=== PATIENT | male | born 1940 | race Caucasian/White ===

== ENCOUNTER → 2019-01-02 | Day surgery (SDC) | payer MEDICARE, OTHER ==
[~2019-01-02] MED LIST: FENOFIBRATE145 MG PO; FLOMAX0.4 MG PO; LEVOTHYROXINE PO; LIDOCAINE HCL 2% LOCAL INJ 5 ML SDV VIAL INJ ONE; PROPOFOL IV EMULSION 10 MG/ML 20 ML VIAL ONE; SULFASALAZINE500 MG PO
[2019-01-02 10:55] VITALS: BP 128/74
--- NOTE | 2019-01-02 13:17 | Operative Report ---
DATE OF PROCEDURE: 01/02/2019 SURGEON: Dav De Paz MD PROCEDURES PERFORMED: 1. Esophagogastroduodenoscopy. 2. Colonoscopy. PREOPERATIVE DIAGNOSES: 1. Anemia. 2. History of colon polyps. POSTOPERATIVE DIAGNOSES: 1. Hiatal hernia. 2. Reflux esophagitis. 3. Murcia's esophagus. 4. Gastric mass. 5. Gastritis. 6. Colonic polyps. 7. Diverticulosis. 8. Internal hemorrhoids. PREOPERATIVE MEDICATIONS: Consisted of MAC anesthesia. PROCEDURE #1: Esophagogastroduodenoscopy. PROCEDURE IN DETAIL: Using an [employer] video gastroscope, it was inserted into the patient's oropharynx, advanced to hypopharynx and down into the esophagus. The mucosa present in the esophagus was normal until we got down to the very bottom of the esophagus. Here, we had a reflux esophagitis and changes compatible with Murcia's esophagus. This was from 38 to 39 cm. Below that, there was a hiatal hernia from 39 to 40 cm. Biopsies were obtained to confirm Murcia esophagus and to look for dysplasia. The stomach was entered and insufflated with air. Along the lesser curvature of the fundus of the stomach, there was a gastric mass, no ulceration. Biopsies were obtained to rule out neoplasm. The rest of the stomach was identified and contained evidence of a gastritis, but no other masses and no bleeding lesions. Biopsies were obtained in the antrum of the stomach for the H. pylori infection. Multiple biopsies were obtained from the gastric mass up in the fundus. The motility was normal. The pylorus was visualized and entered. The duodenal bulb and postbulbar duodenum were found to be within normal limits. No angiodysplasia was seen either in the duodenum or as we entered back into the stomach. In the retroflexed position, the cardia and fundus were viewed and the mass was again seen. It was roughly about 2 cm x 2 cm and just slightly raised irregular folds. The endoscope was then withdrawn back up into the esophagus, hypopharynx, oropharynx and now in the patient's mouth and the procedure was ended. 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 PROCEDURE #2: Colonoscopy. PROCEDURE IN DETAIL: After normal digital rectal examination, Olympus RENE video colonoscope was inserted into the patient's rectum and advanced without difficulty to the level of the cecum. In the cecum, there was a 5 mm size benign polyp, which was removed with hot biopsy forceps. Multiple diverticula were seen in the descending and sigmoid colon. As we got down to the rectum, three small 2-3 mm size polyps were seen and removed with the hot biopsy forceps. Internal hemorrhoids were also encountered. The colonoscope was withdrawn from the patient's rectum and the procedure was ended. In conclusion, we have four benign polyps, which were removed with the hot biopsy forceps. Diverticulosis and internal hemorrhoids. No angiodysplasia in the colon was identified. MD CAITIE Dahl/MODL /[id number]
== END | disposition home or self-care (01) ==
LOC: OR 07:42
PROVIDERS: ATTEND Internal Medicine Gastroenterology
DX: D50.9 Iron deficiency anemia, unspecified (principal); K63.5 Polyp of colon; K62.1 Rectal polyp; K31.7 Polyp of stomach and duodenum; K29.70 Gastritis, unspecified, without bleeding; R19.09 Other intra-abdominal and pelvic swelling, mass and lump; K22.70 Barrett's esophagus without dysplasia; K21.0 Gastro-esophageal reflux disease with esophagitis; K44.9 Diaphragmatic hernia without obstruction or gangrene; K57.30 Diverticulosis of large intestine without perforation or abscess without bleeding; K64.8 Other hemorrhoids; N40.0 Benign prostatic hyperplasia without lower urinary tract symptoms; E78.6 Lipoprotein deficiency; E03.9 Hypothyroidism, unspecified; Z79.82 Long term (current) use of aspirin
CPT/HCPCS: 43239; 45384; J2001; J2704